=== PATIENT | female | born 1975 | race Caucasian/White ===

== ENCOUNTER → 2020-03-17 | Outpatient (CLI) | payer OTHER ==
[~2020-03-17] MED LIST: CEPH-37
== END | disposition home or self-care (01) ==
LOC: LAB 10:51
PROVIDERS: ATTEND Physician Assistant
DX: Z20.828 Contact with and (suspected) exposure to other viral communicable diseases (principal)

== ENCOUNTER 2020-06-05 09:44 | Emergency (ER) | payer OTHER ==
[~2020-06-05] VITALS: Ht 154.9 cm; Wt 67.6 kg
[2020-06-05 09:59] VITALS: BP 127/73
[2020-06-05 11:59] LABS: Hepatitis B Surface Antibody Negative
[2020-06-05 13:22] LABS: Hepatitis B Surface Antigen Negative (Negative)
== END 2020-06-05 11:02 | disposition home or self-care (01) ==
LOC: ER 09:44
DX: S61.233A Puncture wound without foreign body of left middle finger without damage to nail, initial encounter (principal); Z88.6 Allergy status to analgesic agent; Z91.040 Latex allergy status; W46.0XXA Contact with hypodermic needle, initial encounter; Y93.89 Activity, other specified; Y92.89 Other specified places as the place of occurrence of the external cause; Y99.8 Other external cause status
CPT/HCPCS: 36415; 86703; 86706; 86803; 87340

== ENCOUNTER → 2020-08-12 | Outpatient (CLI) | payer OTHER ==
[2020-08-13 09:51] LABS: Hepatitis B Surface Antibody Positive
[2020-08-13 13:06] LABS: Hepatitis B Surface Antigen Negative (Negative)
== END | disposition home or self-care (01) ==
LOC: LAB 08:45
PROVIDERS: ATTEND Nurse Practitioner
DX: Z20.828 Contact with and (suspected) exposure to other viral communicable diseases (principal)
CPT/HCPCS: 36415; 86703; 86706; 86803; 87340

== ENCOUNTER 2024-12-02 08:16 | Emergency (ER) | payer OTHER ==
[~2024-12-02] VITALS: Ht 157.5 cm; Wt 62.7 kg
--- NOTE | 2024-12-02 08:32 | ED.PDOC ---
General HPI Comments 49 year old female presents to the ED with a chief complaint of flank pain onset 1 day. Patient states she began experiencing urinary frequency, dysuria with burning sensation 1 day ago, had an e-visit with [facility], was prescribed nitrofurantoin. Patient began treatment immediately. This morning she began experiencing bilateral flank pain, worst on LT side, was at work and experienced a near syncopal episode, came to ED. BS was 111. PMHx kidney stone, DM, Thyroid disease. Denies fever, chills, hematuria, nausea, vomiting, diarrhea, headache, chest pain.No other symptoms or modifying factors present at this time. Chief Complaint: Urinary Time Seen by MD: 08:20 Primary Care Provider: [facility] notes: Medications, Allergies Allergies: Coded Allergies: Codeine (Verified Allergy, Unknown, 06/05/20) Latex (Verified Allergy, Unknown, 06/05/20) Home Meds Reported Medications Cephalexin (Keflex) 500 Mg Cap, TID 04/29/11 Information Source: Patient Mode of Arrival: Ambulatory Severity: Moderate Timing: Days Duration: Since onset Prehospital treatment: Other Onset: Spontaneous Symptoms: Dysuria, Frequency History of: Kidney stone Location: (R) Flank, (L)Flank Modifying factors: None associated signs and symptoms: Flank Pain, Dysuria, Frequency Past Medical History PAST MEDICAL HISTORY: DM, Kidney Stones, Thyroid Surgical History: Appendectomy, HAM STRINGER History: No Pertinent HAM STRINGER History Family History Family History: Reviewed,noncontributory to illness Social History Smoker: Non-Smoker Alcohol: Denies ETOH Use Drugs: Denies Drug Use Lives In: Home Constitutional: denies: chills, diaphoresis, fatigue, fever, malaise, sweats, weakness, others EENTM: denies: blurred vision, double vision, ear bleeding, ear discharge, ear drainage, ear pain, ear ringing, eye pain, eye redness, hearing loss, mouth pain, mouth swelling, nasal discharge, nose bleeding, nose congestion, nose pain, photophobia, tearing, throat pain, throat swelling, voice changes, others Respiratory: denies: cough, hemoptysis, orthopnea, SOB at rest, shortness of breath, SOB with excertion, stridor, wheezing, others Cardiovascular: denies: chest pain, dizzy spells, diaphoresis, Dyspnea on exertion, edema, irregular heart beat, left arm pain, lightheadedness, palpitations, PND, syncope, others Gastrointestinal: denies: abdomen distended, abdominal pain, blood streaked bowels, constipated, diarrhea, dysphagia, difficulty swallowing, hematemesis, melena, nausea, poor appetite, poor fluid intake, rectal bleeding, rectal pain, vomiting, others Genitourinary: reports: dysuria, flank pain, frequency; denies: abnormal vagina bleeding, burning, dyspareunia, hematuria, incontinence, pain, , vagina discharge, urgency, others Neurological: denies: dizziness, fainting, headache, left sided numbness, left sided weakness, numbness, paresthesia, pre-existing deficit, right sided numbness, right sided weakness, seizure, speech problems, tingling, tremors, weakness, others Musculoskeletal: denies: back pain, gout, joint pain, joint swelling, muscle pain, muscle stiffness, neck pain, others Integumetry: denies: bruises, change in color, change in hair/nails, dryness, laceration, lesions, lumps, rash, wounds, others Allergic/Immunocompromised: denies: Difficulty Healing, Frequent Infections, Hives, Itching, others Hematologic/Lymphatic: denies: anemia, blood clots, easy bleeding, easy bruising, swollen glands, others Endocrine: denies: excessive hunger, excessive sweating, excessive thirst, excessive urination, flushing, intolerance to cold, intolerance to heat, unexplained weight gain, unexplained weight loss, others Psychiatric: denies: anxiety, bipolar disorder, depression, hopeless, panic disorder, schizophrenia, sleepless, suicidal, others All Other Systems: Reviewed and Negative Physical Exam General Appearance: Moderate Distress HEENT: Normal ENT Inspection, Pharynx Normal, TMs Normal Neck: Full Range of Motion, Non-Tender, Normal, Normal Inspection Respiratory: Chest Non-Tender, Lungs Clear, No Accessory Muscle Use, No Respiratory Distress, Normal Breath Sounds Cardiovascular: No Edema, No JVD, No Murmur, No Gallop, Normal Peripheral Pulses, Regular Rate/Rhythm Breast Exam: Deferred Gastrointestinal: No Organomegaly, Non Tender, No Pulsatile Mass, Normal Bowel Sounds, Soft Genitalia: Deferred Pelvic: Deferred Rectal: Deferred Extremities: No calf tenderness, Normal capillary refill, Normal inspection, Normal range of motion, Non-tender, No pedal edema Musculoskeletal : Apperance: Normal Neurologic: Alert, commodity analyst II-XII nml as Tested, No Motor Deficits, Normal Affect, Normal Mood, No Sensory Deficits Cerebellar Function: NOT DONE Reflexes: NOT DONE Skin: Dry, Normal Color, Warm Peripheral Pulses: 3+ Radial (R), 3+ Radial (L) Lymphatic: No Adenopathy Was a procedure done? Was a procedure done?: No EKG EKG : Pulse Rate (adult): 75 Cardiac Rhythm: NSR Differential Diagnosis Kidney stone (Female): Musculoskeletal pain, Urinary obstruction, Urolithiasis X-Ray, Labs, Meds, VS Vital Signs Date Time Temp Pulse Resp B/P (MAP) Pulse Ox O2 Delivery O2 Flow Rate FiO2 12/02/24 09:02 75 12/02/24 08:59 75 12/02/24 08:36 85 16 97 Room Air* 0 21 12/02/24 08:35 97.8 85 16 121/75 (90) 97 97.8 12/02/24 08:17 98.7 83 18 121/75 97 98.7 Lab Test 12/02/24 08:40 12/02/24 08:35 Range/Units Urine Color Yellow Yellow Urine Clarity Clear Clear Urine pH 5.0 5.0-9.0 Urine Specific [place] 1.012 1.001-1.035 Urine Protein Negative Negative Urine Ketones Negative Negative Urine Blood Negative Negative /uL Urine Nitrite Negative Negative Urine Bilirubin Negative Negative Urine Urobilinogen Normal Negative mg/dL Urine Leukocyte Esterase Negative Negative /uL Urine RBC 1 0 - 4 /hpf Urine Microscopic WBC 3 0-5 /HPF Urine Squamous Epithelial Cells Few <5 /hpf Urine Bacteria None seen None Seen /hpf Urine Glucose 4+ H Normal mg/dL White Blood Count 7.2 4.4-10.8 10^3/uL Red Blood Count 5.21 H 4.0-5.20 10^6/uL Hemoglobin 14.1 12.2-16.2 g/dL Hematocrit 43.0 36.0-46.0 % Mean Corpuscular Volume 82.4 80.0-100.0 fL Mean Corpuscular Hemoglobin 27.0 L 28.0-32.0 pg Mean Corpuscular Hemoglobin Concent 32.7 32.0-36.0 g/dL Red Cell Distribution Width 15.8 H 11.8-14.3 % Platelet Count 213 140-450 10^3/uL Mean Platelet Volume 8.5 6.9-10.8 fL Neutrophils (%) (Auto) 85.4 H 37.0-80.0 % Lymphocytes (%) (Auto) 5.4 L 10.0-50.0 % Monocytes (%) (Auto) 5.5 0.0-12.0 % Eosinophils (%) (Auto) 3.6 0.0-7.0 % Basophils (%) (Auto) 0.1 0.0-2.0 % Neutrophils # (Auto) 6.2 1.6-8.6 10 ^3/uL Lymphocytes # (Auto) 0.4 0.4-5.4 10 ^3/uL Monocytes # (Auto) 0.4 0-1.3 10 ^3/uL Eosinophils # (Auto) 0.3 0-0.8 10 ^3/uL Basophils # (Auto) 0 0-0.2 10 ^3/uL Nucleated Red Blood Cells 0.1 % Sodium Level 143 136-145 mmol/L Potassium Level 4.8 3.5-5.1 mmol/L Chloride Level 107 98-107 mmol/L Carbon Dioxide Level 27 20-31 mmol/L Anion Gap 9 5-15 Blood Urea Nitrogen 14 9-23 mg/dL Creatinine 0.82 0.550-1.02 mg/dL Glomerular Filtration Rate Calc 87 >90 mL/min BUN/Creatinine Ratio 17.1 10.0-20.0 Serum Glucose 95 74-106 mg/dL Calcium Level 9.3 8.7-10.4 mg/dL Troponin I High Sensitivity < 3 L </=34 ng/L Current Medications Medications (Trade) Dose Ordered Sig/Vivi Route Start Time Stop Time Status Last Admin Ondansetron HCl (Zofran) 4 mg ONCE ONCE IV 12/02/24 09:00 12/02/24 09:01 DC 12/02/24 09:02 Patient alert. Answering questions. Vitals stable. Establish intravenous access. Was given fluids. Neutrophils are slightly elevated. WBC within normal limits. Was given Zofran. Explained to the patient. Was told to follow up with her primary care physician. Was told to come back if there is any problem. [address] [address] Ph: [phone] DIAGNOSTIC IMAGING Diagnostic Imaging Report : [id number] Signed PATIENT: SHARRON REED ACCT: [id number] UNIT: [id number] : 1975 LOC: ER ROOM / BED: / AGE / SEX: 49 / F ADM STATUS: REG ER SERVICE [id number] ORDERING PHYSICIAN: MUKESH RIVERA MD PROCEDURE(s): ABPL - CT AB PEL WO CON-NO ORAL OR IV REASON: stone ORDER NUMBER(s): [id number], ACCESSION NUMBER(s): [id number] Exam: CT CT AB PEL WO CON-NO ORAL OR IV History: Stone Comparison Study: None Technique: Multidetector spiral CT of the abdomen and pelvis was performed from lung bases to pubic symphysis. Imaging was performed without intravenous contrast. Coronal and sagittal multiplanar reformats were obtained from the axial data set by the technologist. Radiation Dose : 1. Abdomen/Pelvis: CTDIvol 18.27 mGy, DLP 944.8 mGy*cm. Findings: Evaluation of vasculature and solid organs is limited due to lack of intravenous contrast use. Lung Bases: Lung bases are clear. Visualized portions of the heart and pericardium are unremarkable. Liver: The liver is normal in size. No focal lesions. Gallbladder and Biliary Tree: The gallbladder is underdistended. No intrahepatic or extrahepatic biliary ductal dilatation. Spleen: Unremarkable Pancreas: The pancreas is grossly unremarkable. Adrenal Glands: Unremarkable Kidneys: Mild bilateral hydronephrosis. No intrarenal calculi. Left renal cyst noted. GI tract: There is a small hiatal hernia. No evidence of small bowel wall thickening or abnormal dilatation to suggest bowel obstruction. Stool throughout the colon. There are postsurgical changes of the base of the cecum. No findings to suggest acute appendicitis. Peritoneum/mesentery/retroperitoneum. No evidence of free intraperitoneal air. No ascites. Lymph nodes: No evidence of suspicious lymphadenopathy. Abdominal Wall: Unremarkable. Vasculature: The visualized abdominal aorta is normal in size and caliber. Evaluation of abdominal and pelvic vessels is limited due to lack of intravenous contrast. Urinary Bladder: Grossly unremarkable for degree of distention. Pelvic Organs: Unremarkable Musculoskeletal: No aggressive focal bony lesions, acute fractures or dislocation. IMPRESSION: 1. Mild bilateral hydronephrosis. No intrarenal calculi. 2. Postsurgical changes of the base of the cecum. ATED BY: SUSI JAY MD DICTATED DATE/TIME: 12/02/24918 SIGNED BY: SUSI JAY MD SIGNED DATE/TIME: 12/02/24918 CC: Time of 1ST Reevaluation: 08:50 Reevaluation 1ST: Improved Patient Education/Counseling: Diagnosis, Treatment, Prognosis Family Education/Counseling: No Family Present SEPSIS Sepsis Screen Date sepsis recognized/suspect: Dec 02, 2024 Time Sepsis recognized/suspect: 816 Recent Procedure: No On Antibiotic Therapy: Yes Respiratory Rate >20: No Heart Rate >90: No Temp<36 C (96.8 F) or >38.3 C: No SBP <90 or MAP <65 mmHG: No New Acute Mental Status Change: No Is the patient on CPAP, BIPAP,: No Physician Orders Ct Ab Pel Wo Con-No Oral Or Iv (12/02/24 08:27) Vital Signs Date Time Temp Pulse Resp B/P (MAP) Pulse Ox O2 Delivery O2 Flow Rate FiO2 12/02/24 09:02 75 12/02/24 08:59 75 12/02/24 08:36 85 16 97 Room Air* 0 21 12/02/24 08:35 97.8 85 16 121/75 (90) 97 97.8 12/02/24 08:17 98.7 83 18 121/75 97 98.7 Laboratory Tests Test 12/02/24 08:35 White Blood Count 7.2 10^3/uL (4.4-10.8) Medications Medications Dose Ordered Sig/Vivi Route Start Time Stop Time Status Last Admin Dose Admin Ondansetron HCl 4 mg ONCE ONCE IV 12/02/24 09:00 12/02/24 09:01 DC 12/02/24 09:02 Departure 1 Departure Time of Disposition: 08:53 Impression: Primary Impression: Hyperglycemia Additional Impression: Vasovagal response Disposition: 01 HOME / SELF CARE / HOMELESS Condition: Good Discharged With: Self Critical Care Note Critical Care Time?: No Stability Stability form required: No Heart Score Heart Score: Heart Score Response (Comments) Value History Slightly Suspicious 0 EKG Normal 0 Age 45-64 1 Risk Factors 1 or 2 risk factors 1 Troponin Normal limit 0 Total 2 I personally scribed for MUKESH RIVERA MD ([email or web address]) on 12/02/24 at 08:32. Electronically submitted by Cali Lange ([email or web address]). I personally scribed for MUKESH RIVERA MD ([email or web address]) on 12/02/24 at 09:02. Electronically submitted by Cali Lange ([email or web address]). I personally scribed for MUKESH RIVERA MD ([email or web address]) on 12/02/24 at 10:42. Electronically submitted by Francisca White ([email or web address]). MUKESH RIVERA MD Dec 02, 2024 08:32
[2024-12-02 08:35] VITALS: BP 121/75; TEMP 97.8
[2024-12-02 08:36] VITALS: PULSE 85; RESP 16; O2SAT 97
[2024-12-02 08:46] LABS: Hematocrit 43.0 % (36.0-46.0); Hemoglobin 14.1 g/dL (12.2-16.2); Mean Corpuscular Hemoglobin 27.0 pg (28.0-32.0); Mean Corpuscular Volume 82.4 fL (80.0-100.0); Nucleated Red Blood Cells % 0.1 %
[2024-12-02 08:51] LABS: Urine Protein, UAD Negative (Negative)
[2024-12-02 08:54] LABS: Potassium 4.8 mmol/L (3.5-5.1); Sodium 143 mmol/L (136-145)
[2024-12-02 08:55] LABS: Anion Gap 9 (5-15); Calcium 9.3 mg/dL (8.7-10.4); Carbon Dioxide 27 mmol/L (20-31)
[2024-12-02] MEDS: SODIUM CHLORIDE 0.9% 1,000 ML IV ONE (08:56)
[2024-12-02 08:57] LABS: Chloride 107 mmol/L (98-107)
[2024-12-02 09:00] LABS: BUN/Creatinine Ratio 17.1 (10.0-20.0); Blood Urea Nitrogen 14 mg/dL (9-23); Glucose 95 mg/dL (74-106)
--- NOTE | 2024-12-02 09:00 | ECG ---
[facility] Test Date: 2024-12-02 Test Time: 08:59:36 Pat Name: SHARRON REED Department: ER Room: Gender: F Stunner Animal: KELLE : 1975 Requested By: MUKESH IRVERA Order Number: [id number] Reading MD: Abrahan Carney Measurements Intervals [place] Rate: 75 P: 52 CT: 151 QRS: 75 QRSD: 87 T: 52 QT: 359 QTc: 401 Interpretive Statements Sinus rhythm Electronically Signed On 12-02-2024 14:28:37 PDT by Abrahan Carney Please click the below link to view image of tracing.
[2024-12-02 09:02] VITALS: PULSE 75
[2024-12-02] MEDS: ONDANSETRON HCL 4 MG/2 ML VIAL IV ONE (09:02)
--- NOTE | 2024-12-02 09:21 | DVH ---
Exam: CT CT AB PEL WO CON-NO ORAL OR IV History: Stone Comparison Study: None Technique: Multidetector spiral CT of the abdomen and pelvis was performed from lung bases to pubic s ymphysis. Imaging was performed without intravenous contrast. Coronal and sagittal multiplanar reform ats were obtained from the axial data set by the technologist. Radiation Dose : 1. Abdomen/Pelvis: CTDIvol 18.27 mGy, DLP 944.8 mGy*cm. Findings: Evaluation of vasculature and solid organs is limited due to lack of intravenous contrast use. Lung Bases: Lung bases are clear. Visualized portions of the heart and pericardium are unremarkable. Liver: The liver is normal in size. No focal lesions. Gallbladder and Biliary Tree: The gallbladder is underdistended. No intrahepatic or extrahepatic bili rickie ductal dilatation. Spleen: Unremarkable Pancreas: The pancreas is grossly unremarkable. Adrenal Glands: Unremarkable Kidneys: Mild bilateral hydronephrosis. No intrarenal calculi. Left renal cyst noted. GI tract: There is a small hiatal hernia. No evidence of small bowel wall thickening or abnormal dila tation to suggest bowel obstruction. Stool throughout the colon. There are postsurgical changes of t he base of the cecum. No findings to suggest acute appendicitis. Peritoneum/mesentery/retroperitoneum. No evidence of free intraperitoneal air. No ascites. Lymph nodes: No evidence of suspicious lymphadenopathy. Abdominal Wall: Unremarkable. Vasculature: The visualized abdominal aorta is normal in size and caliber. Evaluation of abdominal a nd pelvic vessels is limited due to lack of intravenous contrast. Urinary Bladder: Grossly unremarkable for degree of distention. Pelvic Organs: Unremarkable Musculoskeletal: No aggressive focal bony lesions, acute fractures or dislocation. IMPRESSION: 1. Mild bilateral hydronephrosis. No intrarenal calculi. 2. Postsurgical changes of the base of the cecum.
== END 2024-12-02 10:32 | disposition home or self-care (01) ==
LOC: ER 08:16 → EEVIPCON 08:16 → ER 10:30
DX: E11.65 Type 2 diabetes mellitus with hyperglycemia (principal); R55 Syncope and collapse; Z91.040 Latex allergy status; Z87.442 Personal history of urinary calculi; Z90.49 Acquired absence of other specified parts of digestive tract; Z88.5 Allergy status to narcotic agent
CPT/HCPCS: 36415; 74176; 80048; 81001; 84484; 85025; 93005; 96374; 99285; J2405